=== PATIENT | female | born 1980 | race Two or more races ===

== ENCOUNTER 2019-01-14 18:11 | Emergency (ER) | payer BC, OTHER ==
[~2019-01-14] VITALS: Ht 170.2 cm; Wt 72.6 kg
[~2019-01-14 18:11] MED LIST: AZIT250T13 PO; PRED5TAB48 PO
[2019-01-14 18:30] VITALS: BP 109/73
[2019-01-14] MEDS ORDERED: diphenhydrAMINE HCL 25 MG CAPSULE ONE (18:51)
[2019-01-14] MEDS ORDERED: FAMOTIDINE (20 MG) 20 MG TABLET ONE (18:51)
[2019-01-14] MEDS ORDERED: predniSONE 20 MG TABLET ONE (18:51)
[2019-01-14] MEDS ORDERED: predniSONE 20 MG TABLET PO ONE (19:00)
[2019-01-14] MEDS ORDERED: FAMOTIDINE (20 MG) 20 MG TABLET PO ONE (19:00)
[2019-01-14] MEDS ORDERED: diphenhydrAMINE HCL 25 MG CAPSULE PO ONE (19:00)
== END 2019-01-14 19:32 | disposition home or self-care (01) ==
LOC: ER 18:16
DX: T49.4X5A Adverse effect of keratolytics, keratoplastics, and other hair treatment drugs and preparations, initial encounter (principal); Z79.899 Other long term (current) drug therapy; Y92.89 Other specified places as the place of occurrence of the external cause
CPT/HCPCS: Q0163